=== PATIENT | female | born 1970 | race Caucasian/White ===

== ENCOUNTER 2025-03-30 08:11 | Outpatient (CLI) | payer OTHER, SELFPAY ==
--- OUTSIDE RECORDS SUMMARY | 2025-03-30 08:16 | XMS_ITS | Clinical Summary ---
Author Organization [facility] Address [address] [place] [address] Care Team Providers Care City Superintendent Name Role Phone No, Physician Primary Care Provider [phone] Allergies No known active allergies Medications fluticasone propionate (FLONASE) 50 mcg/actuation nasal spray Administer 2 sprays into each nostril daily 1 each 2 Active Additional Information Patient not taking.Reported on 01/01/2025 Active Problems Problem Noted Date Diagnosed Date Tympanic membrane perforation, left 09/10/2021 Encounters Date Type Department Care Team Description 01/01/2025 6:00 PM CDT Office Visit [facility] at [address] [address] Sonal Gregg NP Acute non-recurrent maxillary sinusitis (Primary Dx); Recurrent epistaxis from Last 3 Months Surgical History Surgery Date Site/Laterality Comments SINUS SURGERY SECTION EAR SURGERY Medical History Medical History Date Comments Peptic ulcer disease Tear of left glenoid labrum Anxiety Anesthesia complication confusio n, passed out after getting up the first time after 2 surgeries Hearing loss Family History Medical History Relation Name Comments Coronary artery disease Father Relation Name Status Comments Father Social History Tobacco Use Types Packs/Day Years Used Date Smoking Tobacco: Never Smokeless Tobacco: Never Alcohol Use Standard Drinks/Week Comments No 0 (1 standard drink = 0.6 oz pur e alcohol) Comments No Sex and Gender Information Value Date Recorded Sex Assigned at Not on file Legal Sex Female 4:56 PM [employer] Gender Identity Not on file Sexual Orientation Not on file Last Filed Vital Signs Vital Sign Reading Time Taken Comments Blood Pressure 117/80 01/01/2025 6:20 PM CDT Pulse 84 01/01/2025 6:20 PM CDT Temperature 36.8 C (98.3 F) 01/01/2025 6:20 PM CDT Respiratory Rate 16 01/01/2025 6:20 PM CDT Oxygen Saturation 98% 01/01/2025 6:20 PM CDT Inhaled Oxygen Concentration - - Weight 66 kg (145 lb 6.4 oz) 01/01/2025 6:20 PM CDT Height 172.7 cm (5' 7.99) 01/01/2025 6:20 PM CD T Body Mass Index 22.11 01/01/2025 6:20 PM CDT Plan of Treatment Health Maintenance Due Date Last Done Comments Breast Cancer Screening-Mammogram 1968 Cervical Cancer Screening 1968 Depression Screening 1968 Hepatitis C Screening 1968 Hepatitis B Screening 02/06/1986 Regular Well Visit/Exam 18-64 02/06/1986 Pneumococcal vaccine <65 (1 of 2 - PCV) 02/06/1987 Zoster Vaccine (1 of 2) 02/06/2018 Colon Cancer Screening-Colonoscopy 08/29/20222012 Covid-19 Vaccine (3 - season) 01/15/202506/2020, 10/21/2020 Influenza Vaccine (#1) 2025 DTaP/Tdap/Td Vaccine (2 - Td or Tdap) 07/23/203001/2021 Colon Cancer Screening-CT Colonography Discontinued Colon Cancer Screening-DNA Stool Discontinued 08/30/19 13 Colon Cancer Screening-FIT Discontinued 08/29/2012 Colon Cancer Screening-Sigmoidoscopy Discontinued 08/15 Medical Devices Implanted Type Area Stemhole Borer And Topper Device Identifier Shelf Expiration Date Model / Serial / Lot Suture Cartridge Implanted:Qty: 1 on 02/21/2018 by Steven Bassett MD at [facility] Left: Shoulder Nails and Nephew [id number] 11/05/2020 [id number] / / [id number] Description:: Item documente d as one time implant on implant screen by RN. Item listed in EPIC under supply screen, so plane tableman entered on supply screen for charging, and left implant screen items as non-chargeable Device Fixation Speedlock Peek-[place] Knotless Compact Radiolucent Independent Internal Lock - [id number] Implanted:Qty: 1 on 02/21/2018 by Steven Bassett MD at [facility] Left: Shoulder Nails & Nephew Endoscopy [id number] 10/02/2020 [place] [address] / / [id number] Suture Cartridge Implanted:Qty: 1 on 02/21/2018 by Steven Bassett MD at [facility] Left: Shoulder Nails and Nephew [id number] 11/05/2020 [facility] / / Description:: Item documente d as one time implant on implant screen by RN. Item listed in EPIC under supply screen, so plane tableman entered on supply screen for charging, and left implant screen items as non-chargeable Device Fixation Speedlock [place] Knotless Compact Radiolucent Independent Internal Lock - [id number] Implanted:Qty: 1 on 02/21/2018 by Steven Bassett MD at [facility] Left: Shoulder Nails & Nephew Endoscopy [id number] 10/02/2020 [place] [address] / / [id number] Device Fixation Speedlock Peek-[place] Knotless Compact Radiolucent Independent Internal Lock - [id number] Implanted:Qty: 1 on 02/21/2018 by Steven Bassett MD at [facility] Left: Shoulder Nails & Nephew Endoscopy [id number] 10/02/2020 [place] [address] / / [id number] Suture Cartridge Implanted:Qty: 1 on 02/21/2018 by Steven Bassett MD at [facility] Left: Shoulder Nails and Nephew [id number] 11/05/2020 [facility] / / Procedures Procedure Name Priority Date/Time Associated Diagnosis Comments COLONOSCOPY REPORT 08/29/2012 from Last 3 Months or Most Recently Relevant to Health Maintenance Results * COLONOSCOPY REPORT (08/29/2012) Anatomical Region Laterality Modality Other Narrative 08/29/2012 Ordered by an unspecified provider. us Historical Provider MD DURAN PROCEDURE ORDERABLES F inal Result from Last 3 Months or Most Recently Relevant to Health Maintenance Insurance CHOICE PLUS [facility] [place] [address] CMR Care Teams City Superintendent Relationship Specialty Start Date End Date No, Physician PCP - General 05/15/21
[2025-03-30 11:09] LABS: Hematocrit 40.4 % (37.0-47.0); Hemoglobin 13.1 g/dL (12.0-15.0); Immature Granulocyte Percent A 0.2 % (0-0.5); Lymphocytes Absolute Auto 1.72 K/mm3 (0.9-3.2); Mean Corpuscular HGB Conc 32.4 g/dl (32-36); Mean Corpuscular Hemoglobin 29.6 pg (26-34); Mean Corpuscular Volume 91.2 fl (80-100); Nucleated Red Blood Cells Absolute Auto 0.000 K/mm3 (0.0-0.012); Nucleated Red Blood Cells Perc 0.0 % (0.0-0.2); Platelet Count Result 285 k/mm3 (150-375); Red Blood Count 4.43 M/mm3 (4.2-5.4); White Blood Count 5.3 K/mm3 (4.5-10.0)
[2025-03-30 11:27] LABS: Alanine Aminotransferase 12 U/L (6-35); Albumin Level 4.4 g/dL (3.5-5.1); Alkaline Phosphatase 84 U/L (38-126); Anion Gap 7 mmol/L (4-12); Aspartate Amino Transferase 33 U/L (14-36); Bilirubin,Total 0.6 mg/dL (0.2-1.3); Blood Urea Nitrogen 13 mg/dL (7-17); Calcium 9.3 mg/dL (8.4-10.2); Carbon Dioxide 28 mmol/L (22-30); Chloride 105 mmol/L (98-107); Cholesterol 250 mg/dL (0-200); Estimated Glomerular Filt Rate > 60; Glucose 88 mg/dL (65-110); HDL Direct 69 mg/dL; Potassium 4.1 mmol/L (3.4-5.0); Sodium 140 mmol/L (137-145); Total Protein 7.8 g/dL (6.3-8.2); Triglycerides 83 mg/dL (<150)
== END 2025-03-30 08:12 | disposition home or self-care (01) ==
LOC: ANHGOSHLAB 08:12
PROVIDERS: PCP Nurse Practitioner; Visit Provider Nurse Practitioner
DX: Z13.220 Encounter for screening for lipoid disorders (principal); Z13.29 Encounter for screening for other suspected endocrine disorder
CPT/HCPCS: 36415; 80053; 80061; 82172; 85025